=== PATIENT | female | born 1950 | race Caucasian/White ===

== ENCOUNTER 2018-07-03 10:41 | Inpatient (IN) ==
--- NOTE | 2018-07-03 11:13 | Emergency Department Note ---
ED Disposition Clinical Impression: COPD (chronic obstructive pulmonary disease), LLL pneumonia, RLL pneumonia, Systemic inflammatory response syndrome (SIRS) Disposition: Still a Patient Condition on Discharge: Fair Referrals: Richard Gallardo [Primary Care Provider] - - Critical Care Critical Care Time: No Attestation: On , the high probability of a clinically significant, sudden or life threatening deterioration of the following system(s) required my full and direct attention, intervention and personal management. The time I documented below is in addition to time spent performing reported procedures but includes the following listed in this critical care notation. Medical Decision Making - Medical Records Medical records reviewed: Yes: I reviewed the patient's medical records. - Ignacio Inquiry Pt receiving controlled substance: No Ignacio was queried for this patient: No Vital Signs: 07/03/18 10:52 07/03/18 12:11 07/03/18 12:22 Temperature 97.9 F Temperature Source Oral Pulse Rate 144 H Pulse Rate [Right Brachial] 121 H 141 H Respiratory Rate 24 35 H Blood Pressure [Right Arm] 107/76 L 133/67 Blood Pressure Mean [Right Arm] 86 89 Blood Pressure Source [Right Arm] Automatic Cuff Automatic Cuff Blood Pressure Position [Right Arm] Sitting Sitting 02 Sat by Pulse Oximetry 92 L 90 L Oxygen Delivery Method Nasal Cannula Nasal Cannula Nasal Cannula Oxygen Flow Rate (LPM) 2 4 4 - Lab Data Lab Results 07/03/18 11:01: WBC 30.9 H*, RBC 3.34 L, Hgb 10.2 L, Hct 31.4 L, MCV 94.0, MCH 30.6, MCHC 32.5, RDW 13.7, Plt Count 306, MPV 6.8 L, Neut % (Auto) 97.1 H, Lymph % (Auto) 1.2 L, [place] % (Auto) 1.2 L, Eos % (Auto) 0.2, Baso % (Auto) 0.3, Neut # (Auto) 30.0 H, Lymph # (Auto) 0.4 L, [place] # (Auto) 0.4, Eos # (Auto) 0.1, Baso # (Auto) 0.1, Total Counted 200, Neutrophils % (Manual) 68, Band Neutrophils % 29.5 H, Lymphocytes % (Manual) 2 L, Monocytes % (Manual) 1 L, Platelet Estimate Normal, Stomatocytes 3+ 07/03/18 11:01: Sodium 132 L, Potassium 4.7, Chloride 95 L, Carbon Dioxide 31, Anion Gap 10.7, BUN 35 H, Creatinine 1.11 H, Estimated Creat Clear 39, Estimated GFR 49 L, Est GFR ( Amer) 59, Glucose 99, Calcium 8.7, Total Bilirubin 0.6, AST 6 L, ALT 18, Alkaline Phosphatase 64, Total Creatine Kinase 16 L, CK-MB (CK-2) 0.5, CK-MB (CK-2) Rel Index 3.1, Troponin I 0.03, Total Protein 8.9 H, Albumin 2.6 L, Globulin 6.3 H, Albumin/Globulin Ratio 0.4 L 07/03/18 11:01: B-Natriuretic Peptide 103 H 07/03/18 11:01: TSH 0.15 L, Free T4 Index 3.3 L, Thyroxine (T4) 7.6, T3 Uptake 43 H 07/03/18 11:01: Lactate 1.9 07/03/18 11:14: Influenza Type A Ag Negative, Influenza Type B Ag Negative Result diagrams: 07/03/18 11:01 07/03/18 11:01 Orders (Tests/Meds): ED MEDICATIONS Generic Name Dose Route Start Last Admin Trade Name Freq PRN Reason Stop Dose Admin Sodium Chloride 1,000 mls @ 500 mls/hr 07/03/18 11:15 07/03/18 11:49 Sod Chlor 0.9% 1000ml Bag IV 07/03/18 13:14 500 mls/hr .Q2H CATERINA Administration Levofloxacin/Dextrose 750 mg in 150 mls @ 100 mls/hr 07/03/18 11:30 07/03/18 11:49 Levofloxacin 750mg/150ml Premix IV 07/17/18 11:29 100 mls/hr Q24H CATERINA Administration Protocol Sodium Chloride 3 ml 07/03/18 11:05 Sodium Chloride 3% 15ml Neb IH 08/02/18 11:04 ONCE PRN INDUCE SPUTUM COLLECTION Discontinued Medications Generic Name Dose Route Start Last Admin Trade Name Freq PRN Reason Stop Dose Admin Albuterol/Ipratropium 3 ml 07/03/18 11:15 07/03/18 12:11 Duoneb 3ml Neb IH 07/03/18 11:16 3 ml ONCE ONE Administration ORDERS Category Date Time Status XR chest 2V Stat Exams 07/03/18 11:05 Taken CBC w/Auto Diff [Complete Blood Count Auto Diff] Stat Lab 07/03/18 11:01 Results Peripheral Smear Review Stat Lab 07/03/18 11:01 Results Blood Culture Stat Micro 07/03/18 11:01 Received Sputum Culture & Gram Stain Stat Micro 07/03/18 11:55 Ordered - Radiology Data #1 Image(s): Chest Image Reviewed: Yes I reviewed the patient's radiology image Preliminary Findings: Abnormal Right lower lobe infiltrates and left basilar infiltrates. - ECG Data Tracing #1 Sinus tachycardia 120/minute, baseline artifact, right atrial enlargement, no acute finding ECG initial impression date: 07/03/18 ECG initial impression time: 10:50 Medical Decision Narrative: I discussed the abnormal chest x-ray and abnormal labs with the patient was agreeable for admission. [address] Lowe who covers Dr. Gallardo is patients who agreed to admit the patient and start her on Levaquin IV. Resp/SOB HPI - General Chief Complaint: Shortness of Breath/Dyspnea Stated Complaint: SOA Time Seen by Provider: 07/03/18 10:55 Mode of Arrival: Ambulatory Limitations: No Limitations Description of Symptoms (Recalled from ER Triage Doc. by RN): pt states she has left lung pain and increased soa; has a mass on that side - History of Present Illness 67 years old white female with history of lung mass, COPD, oxygen dependent 4 L nasal cannula hypertension and status post left hip replacement. Today the patient developed low grade fever, chills, productive sputum and exertional dyspnea. Today she was seen by her primary care physician who found her to be having a low-grade temp of 99 and low sinus tachycardia of 110/min so he sent her to the ED for evaluation. She denies having hemoptysis but she admits for having left-sided intermittent sharp pain worse with deep inspiration. Her left lung mass was not worked up. MD Complaint: shortness of breath, cough, pain with inspiration Onset (ago): day(s) (Started yesterday.) Severity: mild Consistency/Duration: intermittent Relieving factors: oxygen, rest, bronchodilators, upright position Exacerbating factors: lying flat, exertion, coughing, inspiration Known history of: COPD, other (Left lung mass. ) Associated symptoms: denies other symptoms Treatment prior to arrival: none - Related Data Home oxygen amount: none Home Medications Medication Instructions Recorded Confirmed amlodipine 10 mg tablet 10 mg PO DAILY tab 08/21/17 escitalopram 10 mg tablet 10 mg PO DAILY tab 08/21/17 hydrocodone 5 mg-acetaminophen 325 1 tab PO Q6H 08/21/17 mg tablet omeprazole 40 mg capsule,delayed 40 mg PO DAILY cap 08/21/17 release rosuvastatin 10 mg tablet 10 mg PO QHS tab 08/21/17 spironolactone 50 mg tablet 50 mg PO QAM 08/21/17 Allergies Allergy/AdvReac Type Severity Reaction Status Date / Time Penicillins [PENICILLINS] Allergy Intermediate I-HIVES Unverified 04/28/17 14:55 lisinopril Allergy Unknown Unverified 04/28/17 14:[address] [facility] History - Hepatitis A Screen Drug use history?: No High risk sexual behaviors?: No History of sexually transmitted infection?: No Currently employed?: No Childcare worker?: No Do you have indoor plumbing?: Yes Do you have electricity?: Yes Attestation statement:: This patient has been screened for Hepatitis A risk factors. I have reviewed the patient's past medical history: Yes Medical History: Reports:: Chronic Obstructive Pulmonary Disease (COPD), Home Oxygen, Hypertension Other Medical History: Reports: Anemia Other Surgeries: Yes: Hysterectomy-Partial, Tubal Ligation - Social History Educational Level: Completed High School Smoking Status: Former smoker Tobacco Type: cigarettes # Packs/Day (cigarettes): 1 Alcohol Intake: never Occupational Status: unemployed - Psychiatric History Expresses thoughts of harming self/others: None Suicide Plan Description: No Plan Family Hx:: Diabetes, Cancer ROS Obtained: Yes All systems reviewed & no additional complaints Physical Exam - General General appearance: alert, in no apparent distress - Head Head exam: atraumatic, normocephalic, normal inspection - Eye Eye exam: Present: normal appearance, PERRL, EOMI. Absent: scleral icterus, nystagmus - ENT ENT exam: Present: normal exam, normal oropharynx, mucous membranes moist, TM's normal bilaterally, normal external ear exam - Neck Neck exam: Present: normal inspection, full ROM, trachea midline. Absent: tenderness, meningismus, lymphadenopathy - Chest Chest inspection: Present: normal inspection, symmetric chest wall rise. Absent: tenderness - Respiratory Respiratory exam: Present: normal lung sounds bilaterally. Absent: respiratory distress, wheezes - Cardiovascular Cardiovascular exam: Present: regular rate, normal rhythm, tachycardia. Absent: JVD - Abdominal Exam Abdominal exam: Present: soft, normal bowel sounds. Absent: distention, tenderness, guarding, rebound, rigidity - Extremities Exam Extremities exam: Present: normal inspection, full ROM, normal capillary refill. Absent: calf tenderness - Back Exam Back exam: Present: normal inspection. Absent: tenderness, CVA tenderness (R), CVA tenderness (L) - Neurological Exam Neurological exam: Present: alert, oriented X3, CN II-XII intact, motor sensory deficit, reflexes normal - Psychiatric Psychiatric exam: Present: normal affect, normal mood - Skin Skin exam: Present: warm, dry, intact, normal color - Lymphatic Lymphatic Findings: no adenopathy
[2018-07-03 11:36] LABS: Basophils # 0.1 K/mm3 (0-0.2); Basophils % 0.3 % (0.1-2.0); Eosinophils # 0.1 K/mm3 (0.0-0.4); Eosinophils % 0.2 % (0.1-12.0); Hematocrit 31.4 % (37.0-47.0); Hemoglobin 10.2 g/dL (12.2-16.2); Lymphocytes # 0.4 K/mm3 (0.7-4.5); Lymphocytes % 1.2 % (10-50); Mean Corpuscular HGB Conc 32.5 g/dL (31.8-35.4); Mean Corpuscular Hemoglobin 30.6 pg (27.0-31.2); Mean Platelet Volume 6.8 fl (7.4-10.4); Monocytes # 0.4 K/mm3 (0.1-1.0); Monocytes % 1.2 % (1.7-9.3); Neutrophils % 97.1 % (37.0-80.0); Platelet Count 306 K/mm3 (142-424); Red Blood Count 3.34 M/mm3 (4.20-5.40); Red Cell Distribution Width 13.7 % (11.5-17.5); White Blood Count 30.9 K/mm3 (4.8-10.8)
[2018-07-03 11:50] LABS: Free Thyroxine Index 3.3 ug/dL (5.93-13.13); Thyroid Stimulating Hormone 0.15 uIU/ml (0.358-3.740)
[2018-07-03 11:53] LABS: Band Neutrophils % 29.5 (0-8); Lymphocytes % 2 % (10-50); Monocytes % 1 % (2-9); Neutrophils % 68 % (42-76); Total Cells Counted 200
[2018-07-03 11:54] LABS: Stomatocytes 3+
[2018-07-03 12:11] LABS: Albumin Level 2.6 gm/dL (3.4-5.0); Albumin/Globulin Ratio 0.4 (1.1-1.8); Anion Gap 10.7 mEq/L (5-15); Bilirubin,Total 0.6 mg/dL (0.2-1.0); Calcium 8.7 mg/dL (8.5-10.1); Globulin 6.3 gm/dl (1.3-3.2); Potassium 4.7 mmoL/L (3.5-5.1); Total Protein,Serum 8.9 gm/dL (6.4-8.2)
--- NOTE | 2018-07-03 14:14 | Pharmacy Consult Notes ---
[facility] Pharmacy VTE Monitoring - Patient Demographics Admission date: 07/03/18 Report Date: 07/03/18 Time: 14:14 Allergies/Adverse Reactions: Patient Allergies Penicillins [PENICILLINS] Allergy (Intermediate, Verified 07/03/18 14:04) I-HIVES lisinopril Allergy (Unknown, Verified 07/03/18 14:04) Height: 1.57 m Weight: 52.163 kg Patient Problems: Current Active Problems COPD (chronic obstructive pulmonary disease) (Acute) LLL pneumonia (Acute) RLL pneumonia (Acute) Systemic inflammatory response syndrome (SIRS) (Acute) - VTE Risk Labs: VTE Related Lab Results Hgb 10.2 g/dL (12.2-16.2) L 07/03/18 11:01 Hct 31.4 % (37.0-47.0) L 07/03/18 11:01 Plt Count 306 K/mm3 (142-424) 07/03/18 11:01 BUN 35 mg/dL (7-18) H 07/03/18 11:01 Creatinine 1.11 mg/dL (0.55-1.02) H 07/03/18 11:01 Estimated Creat Clear 39 mL/min (50-200) 07/03/18 11:01 - Prophylaxis VTE Prophylaxis Ordered?: Yes Types of VTE Prophylaxis: TEDS Knee High Location of Applied Device: Bilateral Lower Extremeties - VTE Diagnosis Confirmed Treatment or plan recommended: Continue Current Treatment
[2018-07-03 15:37] LABS: ABG HCO3 29.7 mmhg (22.0-26.0); ABG Oxygen Saturation 95 % (90-100); ABG PCO2 47.9 mmhg (35.0-45.0); ABG PH 7.41 mmol/L (7.35-7.45); ABG PO2 78.6 mmhg (80-100); ABG TCO2 31.2 mmhg (23-27)
[2018-07-03 15:39] LABS: Allen's Test Acceptable
--- NOTE | 2018-07-03 17:17 | History & Physical Report ---
*Admission Date: 07/03/18 *Chief complaint: Shortness of air and cough *History of present illness: 67-year-old white female with oxygen and prednisone requiring COPD, who has had a significant run of illness over the past couple of years. She presented to the emergency department this morning from her primary care physician's office after she had had a 1 day history of cough and shortness of air along with some sputum production. She has been feeling poorly for about 3 or 4 days with decreased p.o. intake. She became worse today, in the office was noted to have tachypnea and low oxygen saturations and was sent to the emergency department. ER workup revealed significant leukocytosis, hypoxia over her baseline, infiltrate on chest x-ray and she is admitted to the hospital for IV antibiotics and steroid therapy. [facility] History I have reviewed the patient's past medical history: Yes Medical History: Reports:: Chronic Obstructive Pulmonary Disease (COPD), Home Oxygen, Hyperlipidemia, Hypertension Denies:: Cancer, Diabetes Mellitus Type 1, Diabetes Mellitus Type 2, MRSA *Have you ever received a pneumonia vaccine?: Yes *Have you received a flu vaccine this season?: Yes Other Medical History: Reports: Anemia, Arthritis, Hormone Therapy (estrogen), Sinus Problems Comment:: Admitted to [facility] in September 2017, ventilated for several days and then underwent skilled rehabilitation in [place] for several weeks. Admitted to [facility] in 2016 for lung biopsy of suspicious nodule, apparently complications included significant hemo-thorax and she spent several days in the hospital with bloody evacuations but no biopsy was ever done. She has lost follow-up with oncology. Laterality Cases: Left: Arthroscopy Hip Other Surgeries: Yes: Cardiac Catheterization, Colonoscopy, EGD, Hysterectomy- Partial, Tubal Ligation Amputation: No Fractures: Yes (right wrist) - *Social History Educational Level: Completed High School Smoking Status: Former smoker Tobacco Type: cigarettes # Packs/Day (cigarettes): 1 Alcohol Intake: never *Occupational Status:: unemployed Housing: house Household Members: children, other *Travel in the last 8 weeks: None Comment: Lives at home with a daughter who has Vasquez syndrome and is intellectually disabled, a granddaughter and has excellent contact with another daughter and 2 sons. She is but she lives apart from her in separate houses-he has significant PTSD history and does better "if he lives by himself." - Psychiatric History Expresses thoughts of harming self/others: None Suicide Plan Description: No Plan Family Hx:: Cancer, Hyperlipidemia, Hypertension Review of Systems - Review of Systems Review of systems:: pertinent systems reviewed and negative unless documented below - Constitutional Reports anorexia, Reports body ache(s), Reports chills, Reports fever(s) - Eyes Denies blind spots, Denies blurry vision, Denies change in vision - ENT Reports dry mouth, Denies abnormal hearing, Denies bleeding gums - *Cardiovascular Reports shortness of breath, Reports shortness of breath with activity, Reports shortness of breath when lying down, Reports rapid, pounding, or irregular heartbeat, Denies chest pain, Denies chest pain at rest, Denies leg swelling - *Respiratory Reports change in phlegm color, Reports chest congestion, Reports cough, Reports shortness of breath - *Gastrointestinal Denies abdominal pain, Denies belching, Denies coffee ground vomit, Denies constipation - *Musculoskeletal Denies abnormal walking - Integumentary/Breasts Denies acne, Denies hair loss, Denies bleeding lesions - *Neurologic Denies abnormal walking - Psychiatric Denies abnormal sleep pattern - Endocrine Denies cold intolerance - Hematologic/Lymphatic Denies easy bleeding, Denies easy bruising, Denies enlarged lymph nodes Meds Home Medications Medication Instructions Recorded Confirmed Type amlodipine 10 mg tablet 10 mg PO DAILY tab 08/21/17 07/03/18 History escitalopram 10 mg tablet 10 mg PO DAILY tab 08/21/17 07/03/18 History hydrocodone 5 mg-acetaminophen 325 1 tab PO Q6H 08/21/17 07/03/18 History mg tablet omeprazole 40 mg capsule,delayed 40 mg PO DAILY cap 08/21/17 07/03/18 History release spironolactone 50 mg tablet 50 mg PO DAILY 08/21/17 07/03/18 History Rosuvastatin Calcium 10 mg PO HS 07/03/18 07/03/18 History Allergies Allergy/AdvReac Type Severity Reaction Status Date / Time Penicillins [PENICILLINS] Allergy Intermediate I-HIVES Verified 07/03/18 14:04 lisinopril Allergy Unknown Verified 07/03/18 14:04 Exam Vital signs and Labs for Last 24 Hours: Temp Pulse Resp BP Pulse Ox 100.7 F H 146 H 38 H 115/67 86 L 07/03/18 15:55 07/03/18 15:55 07/03/18 15:55 07/03/18 15:55 07/03/18 15:55 Laboratory Results - last 24 hr 07/03/18 11:01: WBC 30.9 H*, RBC 3.34 L, Hgb 10.2 L, Hct 31.4 L, MCV 94.0, MCH 30.6, MCHC 32.5, RDW 13.7, Plt Count 306, MPV 6.8 L, Neut % (Auto) 97.1 H, Lymph % (Auto) 1.2 L, [place] % (Auto) 1.2 L, Eos % (Auto) 0.2, Baso % (Auto) 0.3, Neut # (Auto) 30.0 H, Lymph # (Auto) 0.4 L, [place] # (Auto) 0.4, Eos # (Auto) 0.1, Baso # (Auto) 0.1, Total Counted 200, Neutrophils % (Manual) 68, Band Neutrophils % 29.5 H, Lymphocytes % (Manual) 2 L, Monocytes % (Manual) 1 L, Platelet Estimate Normal, Stomatocytes 3+ 07/03/18 11:01: Sodium 132 L, Potassium 4.7, Chloride 95 L, Carbon Dioxide 31, Anion Gap 10.7, BUN 35 H, Creatinine 1.11 H, Estimated Creat Clear 39, Estimated GFR 49 L, Est GFR ( Amer) 59, Glucose 99, Calcium 8.7, Total Bilirubin 0.6, AST 6 L, ALT 18, Alkaline Phosphatase 64, Total Creatine Kinase 16 L, CK-MB (CK-2) 0.5, CK-MB (CK-2) Rel Index 3.1, Troponin I 0.03, Total Protein 8.9 H, Albumin 2.6 L, Globulin 6.3 H, Albumin/Globulin Ratio 0.4 L 07/03/18 11:01: B-Natriuretic Peptide 103 H 07/03/18 11:01: TSH 0.15 L, Free T4 Index 3.3 L, Thyroxine (T4) 7.6, T3 Uptake 43 H 07/03/18 11:01: Lactate 1.9 07/03/18 11:14: Influenza Type A Ag Negative, Influenza Type B Ag Negative 02/23/19 15:05: Specimen Source Right radial, O2 % 50% venti, ABG pH 7.41, ABG pCO2 47.9 H, ABG pO2 78.6 L, ABG HCO3 29.7 H, ABG Total CO2 31.2 H, ABG O2 Saturation 95, ABG Base Excess 5.0 H, Chet Test Acceptable I & O for Last 24 hours: Intake & Output 07/01/18 07/02/18 07/03/18 07/04/18 11:59 11:59 11:59 11:59 Weight 115 lb 115 lb Microbiology Reports for the Last 24 Hours: Microbiology 07/03/18 11:55 Sputum - Expectorated Sputum Gram Stain - Final Narrative: Patient is awake, on a facemask oxygen delivery system. Appears older than her stated age. Is pleasant, alert, oriented x3. Very knowledgeable about her past medical history. Oropharynx is dry but clear, she has no JVD. She has no supraclavicular lymphadenitis. Lungs have crackles throughout her lung benavides, diminished air movement in the left lower lung field. Significant use of accessory muscles. Heart rate tachycardic but regular. Ausculatory exam compromised by her significant abnormal lung exam. Abdomen soft, nontender. Normal bowel sounds. Perfusion is slightly diminished at 3 seconds capillary refill but her extremities are warm. No pulse deficits. She is weak but has symmetric cranial nerves and moves all extremities well. Assessment and Plan (1) Pleural effusion Current visit: Yes Status: Acute Category: Medical Code(s): J90 - Pleural effusion, not elsewhere classified Possible left over scarring/effusion from episode of admission at with hemothorax. If creatinine has improved tomorrow would consider CT scan with contrast to delineate this structure and possible infiltrate. (2) COPD (chronic obstructive pulmonary disease) Current visit: Yes Status: Acute Category: Medical Code(s): J44.9 - Chronic obstructive pulmonary disease, unspecified End-stage disease. Continue supportive care Xopenex given her reactive tachycardia and steroids. (3) LLL pneumonia Current visit: Yes Status: Acute Category: Medical Code(s): J18.1 - Lobar pneumonia, unspecified organism Has not had antibiotics recently. We will start single agent Levaquin therapy, await culture results from blood and sputum.
[2018-07-04 06:50] LABS: Basophils # 0.1 K/mm3 (0-0.2); Basophils % 0.2 % (0.1-2.0); Eosinophils # 0.1 K/mm3 (0.0-0.4); Eosinophils % 0.3 % (0.1-12.0); Hemoglobin 9.4 g/dL (12.2-16.2); Lymphocytes # 0.4 K/mm3 (0.7-4.5); Lymphocytes % 1.2 % (10-50); Mean Corpuscular HGB Conc 31.9 g/dL (31.8-35.4); Mean Corpuscular Hemoglobin 30.2 pg (27.0-31.2); Mean Corpuscular Volume 94.9 fl (81-99); Mean Platelet Volume 6.9 fl (7.4-10.4); Monocytes # 0.3 K/mm3 (0.1-1.0); Monocytes % 0.9 % (1.7-9.3); Neutrophils # 27.2 K/mm3 (1.8-7.8); Neutrophils % 97.3 % (37.0-80.0); Platelet Count 222 K/mm3 (142-424); Red Blood Count 3.11 M/mm3 (4.20-5.40); Red Cell Distribution Width 13.6 % (11.5-17.5)
[2018-07-04 06:52] LABS: Anion Gap 11.5 mEq/L (5-15); Calcium 8.4 mg/dL (8.5-10.1); Potassium 4.5 mmoL/L (3.5-5.1)
[2018-07-04 06:54] LABS: Hematocrit 29.5 % (37.0-47.0)
[2018-07-04 07:07] LABS: Hypochromasia 1+; Lymphocytes % 2 % (10-50); Neutrophils % 82 % (42-76); Rouleaux 1+; Total Cells Counted 100
--- NOTE | 2018-07-04 08:02 | Progress Note ---
Internal Medicine - PN: Subj *Date: 07/04/18 *Time: 08:00 Interval history: Patient is nicely improved this morning. Sitting up in a chair, tolerating nasal cannula oxygen well with acceptable pulse oximetry readings in the low to 90% range. She is alert, oriented and pleasant ate a good breakfast. Exam Vital signs and Labs for Last 24 Hours: Temp Pulse Resp BP Pulse Ox 97.9 F 107 H 20 118/59 L 91 L 07/04/18 07:36 07/04/18 07:36 07/04/18 07:36 07/04/18 07:36 07/04/18 07:36 Laboratory Results - last 24 hr 07/03/18 11:01: WBC 30.9 H*, RBC 3.34 L, Hgb 10.2 L, Hct 31.4 L, MCV 94.0, MCH 30.6, MCHC 32.5, RDW 13.7, Plt Count 306, MPV 6.8 L, Neut % (Auto) 97.1 H, Lymph % (Auto) 1.2 L, [place] % (Auto) 1.2 L, Eos % (Auto) 0.2, Baso % (Auto) 0.3, Neut # (Auto) 30.0 H, Lymph # (Auto) 0.4 L, Isabella # (Auto) 0.4, Eos # (Auto) 0.1, Baso # (Auto) 0.1, Total Counted 200, Neutrophils % (Manual) 68, Band Neutrophils % 29.5 H, Lymphocytes % (Manual) 2 L, Monocytes % (Manual) 1 L, Platelet Estimate Normal, Stomatocytes 3+ 07/03/18 11:01: Sodium 132 L, Potassium 4.7, Chloride 95 L, Carbon Dioxide 31, Anion Gap 10.7, BUN 35 H, Creatinine 1.11 H, Estimated Creat Clear 39, Estimated GFR 49 L, Est GFR ( Amer) 59, Glucose 99, Calcium 8.7, Total Bilirubin 0.6, AST 6 L, ALT 18, Alkaline Phosphatase 64, Total Creatine Kinase 16 L, CK-MB (CK-2) 0.5, CK-MB (CK-2) Rel Index 3.1, Troponin I 0.03, Total Protein 8.9 H, Albumin 2.6 L, Globulin 6.3 H, Albumin/Globulin Ratio 0.4 L 07/03/18 11:01: B-Natriuretic Peptide 103 H 07/03/18 11:01: TSH 0.15 L, Free T4 Index 3.3 L, Thyroxine (T4) 7.6, T3 Uptake 43 H 07/03/18 11:01: Lactate 1.9 07/03/18 11:14: Influenza Type A Ag Negative, Influenza Type B Ag Negative 07/03/18 15:05: Specimen Source Right radial, O2 % 50% venti, ABG pH 7.41, ABG pCO2 47.9 H, ABG pO2 78.6 L, ABG HCO3 29.7 H, ABG Total CO2 31.2 H, ABG O2 Saturation 95, ABG Base Excess 5.0 H, Chet Test Acceptable 07/04/18 06:40: WBC 28.0 H*, RBC 3.11 L, Hgb 9.4 L, Hct 29.5 L, MCV 94.9, MCH 30.2, MCHC 31.9, RDW 13.6, Plt Count 222 D, MPV 6.9 L, Neut % (Auto) 97.3 H, Lymph % (Auto) 1.2 L, [place] % (Auto) 0.9 L, Eos % (Auto) 0.3, Baso % (Auto) 0.2, Neut # (Auto) 27.2 H, Lymph # (Auto) 0.4 L, [place] # (Auto) 0.3, Eos # (Auto) 0.1, Baso # (Auto) 0.1, Total Counted 100, Neutrophils % (Manual) 82 H, Band Neutrophils % 16.0 H, Lymphocytes % (Manual) 2 L, Platelet Estimate Normal, Hypochromasia 1+, Rouleaux 1+ 07/04/18 06:40: Sodium 135 L, Potassium 4.5, Chloride 99, Carbon Dioxide 29, Anion Gap 11.5, BUN 32 H, Creatinine 0.90, Estimated Creat Clear 44, Estimated GFR 62, Est GFR ( Amer) 75 D, Glucose 149 H D, Calcium 8.4 L I & O for Last 24 hours: Intake & Output 07/01/18 07/02/18 07/03/18 07/04/18 11:59 11:59 11:59 11:59 Intake Total 1521 152 Balance 1522 / 1522 Weight 115 lb 115 lb Microbiology Reports for the Last 24 Hours: Microbiology 07/03/18 11:01 Blood Blood Culture - Preliminary Gram Positive Cocci 07/03/18 11:01 Blood Blood Culture - Preliminary Gram Positive Cocci 07/03/18 11:55 Sputum - Expectorated Sputum Gram Stain - Final 07/03/18 11:55 Sputum - Expectorated Sputum Sputum Culture - Preliminary Narrative: Oropharynx clear, no JVD. Lungs have better air entry with less crackles, still with reduced air movement in both bases, especially on the left. Heart rate regular. Perfusion is improved. Does are equal in all 4 extremities. Abdomen soft and nontender. Neurologic exam nonfocal. Assessment and Plan (1) Pleural effusion Current visit: Yes Status: Acute Category: Medical Code(s): J90 - Pleural effusion, not elsewhere classified History of lung mass with failed biopsy get CT scan today. Creatinine has improved. (2) COPD (chronic obstructive pulmonary disease) Current visit: Yes Status: Acute Category: Medical Code(s): J44.9 - Chronic obstructive pulmonary disease, unspecified Severe disease. Slowly improving (3) LLL pneumonia Current visit: Yes Status: Acute Category: Medical Code(s): J18.1 - Lobar pneumonia, unspecified organism Given blood cultures probably from Streptococcus. Continue IV antibiotics (4) Bacteremia Current visit: Yes Status: Acute Category: Medical Code(s): R78.81 - Bacteremia Streptococcus and blood culture bottles are continue antibiotics and await final results -- discussed with patient probably need 2 weeks of IV antibiotics (5) Acute kidney injury Current visit: Yes Status: Acute Category: Medical Code(s): N17.9 - Acute kidney failure, unspecified Improved with IV fluids. Continue these IV fluids through the CAT scan. And watch tomorrow
[2018-07-05 06:30] LABS: Basophils % 0.1 % (0.1-2.0); Hematocrit 28.3 % (37.0-47.0); Hemoglobin 8.9 g/dL (12.2-16.2); Lymphocytes # 0.4 K/mm3 (0.7-4.5); Lymphocytes % 1.5 % (10-50); Mean Corpuscular HGB Conc 31.6 g/dL (31.8-35.4); Mean Corpuscular Hemoglobin 30.7 pg (27.0-31.2); Mean Corpuscular Volume 97.1 fl (81-99); Mean Platelet Volume 7.5 fl (7.4-10.4); Monocytes # 0.5 K/mm3 (0.1-1.0); Monocytes % 1.8 % (1.7-9.3); Neutrophils # 24.1 K/mm3 (1.8-7.8); Neutrophils % 96.5 % (37.0-80.0); Platelet Count 230 K/mm3 (142-424); Red Blood Count 2.91 M/mm3 (4.20-5.40); Red Cell Distribution Width 13.7 % (11.5-17.5)
[2018-07-05 06:57] LABS: Albumin Level 1.8 gm/dL (3.4-5.0); Albumin/Globulin Ratio 0.3 (1.1-1.8); Anion Gap 6.6 mEq/L (5-15); Bilirubin,Total 0.2 mg/dL (0.2-1.0); Calcium 9.2 mg/dL (8.5-10.1); Globulin 6.1 gm/dl (1.3-3.2); Potassium 4.6 mmoL/L (3.5-5.1); Total Protein,Serum 7.9 gm/dL (6.4-8.2)
[2018-07-05 07:38] LABS: Lymphocytes % 2 % (10-50); Neutrophils % 98 % (42-76); RBC Morphology Normal; Total Cells Counted 100
--- NOTE | 2018-07-05 08:08 | Progress Note ---
Internal Medicine - PN: Subj *Date: 07/05/18 *Time: 08:05 Interval history: Patient is awake, alert and pleasant. Feels much better. Tolerating nasal cannula oxygen well. Exam Vital signs and Labs for Last 24 Hours: Temp Pulse Resp BP Pulse Ox 97.9 F 99 H 20 108/58 L 92 L 07/05/18 07:40 07/05/18 07:40 07/05/18 07:40 07/05/18 07:40 07/05/18 07:40 Laboratory Results - last 24 hr 07/05/18 06:20: WBC 25.0 H*, RBC 2.91 L, Hgb 8.9 L, Hct 28.3 L, MCV 97.1, MCH 30.7, MCHC 31.6 L, RDW 13.7, Plt Count 230, MPV 7.5, Neut % (Auto) 96.5 H, Lymph % (Auto) 1.5 L, [place] % (Auto) 1.8, Eos % (Auto) 0.0 L, Baso % (Auto) 0.1, Neut # (Auto) 24.1 H, Lymph # (Auto) 0.4 L, [place] # (Auto) 0.5, Eos # (Auto) 0.0, Baso # (Auto) 0.0, Total Counted 100, Neutrophils % (Manual) 98 H, Lymphocytes % (Manual) 2 L, Platelet Estimate Normal, RBC Morphology Normal 07/05/18 06:20: Sodium 136, Potassium 4.6, Chloride 100, Carbon Dioxide 34 H, Anion Gap 6.6, BUN 36 H, Creatinine 0.89, Estimated Creat Clear 44, Estimated GFR 63, Est GFR ( Amer) 76, Glucose 150 H, Calcium 9.2, Total Bilirubin 0.2, AST 96 H D, ALT 142 H D, Alkaline Phosphatase 73, Total Protein 7.9, Albumin 1.8 L, Globulin 6.1 H, Albumin/Globulin Ratio 0.3 L I & O for Last 24 hours: Intake & Output 07/02/18 07/03/18 07/04/18 07/05/18 11:59 11:59 11:59 11:59 Intake Total 2001 2167 / 2167 Balance 20017 / 216 Weight 115 lb 115 lb Microbiology Reports for the Last 24 Hours: Microbiology 07/03/18 11:55 Sputum - Expectorated Sputum Gram Stain - Final 07/03/18 11:55 Sputum - Expectorated Sputum Sputum Culture - Final Normal Respiratory Apurva 07/03/18 11:01 Blood Blood Culture - Final Streptococcus pneumoniae 07/03/18 11:01 Blood Blood Culture - Final Streptococcus pneumoniae Narrative: Patient is pleasant and alert. These have rhonchi but better air entry. Heart rate regular. Abdomen soft and nontender. No perfusion deficit Assessment and Plan (1) Pleural effusion Current visit: Yes Status: Acute Category: Medical Code(s): J90 - Pleural effusion, not elsewhere classified CT scan reviewed showing moderate size pleural effusion. Surgical consultation to see if drainage for cytology would be possible. CT scan also shows an lung pulmonary nodular and (2) COPD (chronic obstructive pulmonary disease) Current visit: Yes Status: Acute Category: Medical Code(s): J44.9 - Chronic obstructive pulmonary disease, unspecified (3) LLL pneumonia Current visit: Yes Status: Acute Category: Medical Code(s): J18.1 - Lobar pneumonia, unspecified organism (4) Bacteremia Current visit: Yes Status: Acute Category: Medical Code(s): R78.81 - Bacteremia (5) Acute kidney injury Current visit: Yes Status: Resolved Category: Medical Code(s): N17.9 - Acute kidney failure, unspecified (6) Sepsis due to Streptococcus pneumoniae Current visit: Yes Status: Acute Category: Medical Code(s): A40.3 - Sepsis due to Streptococcus pneumoniae Organism sensitive to all antibiotics tested. Plan to place PICC line today for 10 more days of antibiotics and patient will need swing bed (7) Hyponatremia Current visit: Yes Status: Resolved Category: Medical Code(s): E87.1 - Hypo-osmolality and hyponatremia Resolved with appropriate hydration (8) Pulmonary nodule Current visit: Yes Status: Acute Category: Medical Code(s): R91.1 - Solitary pulmonary nodule Patient has a history of biopsy attempt at [facility] in 2017 that resulted in hemothorax and an unsuccessful biopsy. I do not have these records Nodule appears to be enlarging on our CT scan yesterday. Pulmonary eval.
--- NOTE | 2018-07-05 08:44 | Consult Report ---
*Admission Date: 07/03/18 *Chief complaint: Left pleural effusion *History of present illness: Patient is a very pleasant 67-year-old white female with history of home oxygen dependent COPD. She does have a previous history of a left lung nodule which reportedly had an attempt at an unsuccessful biopsy at [facility] in April 2017 resulting in hemothorax. She admitted a couple days ago with increasing shortness of air and productive cough. She was diagnosed with pneumonia. Initial chest x-ray revealed evidence of left effusion. She underwent CT scan of the chest yesterday. Surgical consultation was obtained today for possible diagnostic thoracentesis due to history of this lung nodule. Review of Systems - Review of Systems Review of systems:: pertinent systems reviewed and negative unless documented below - Constitutional Reports chills - Eyes Denies change in vision - ENT Denies abnormal hearing - *Cardiovascular Denies chest pain - *Respiratory Reports change in phlegm color, Reports chest congestion, Reports cough, Reports shortness of breath - *Gastrointestinal Denies abdominal pain - *Neurologic Denies abnormal walking, Denies abnormal hearing [facility] History Medical History: Reports:: Chronic Obstructive Pulmonary Disease (COPD), Home Oxygen, Hyperlipidemia, Hypertension Denies:: Cancer, Diabetes Mellitus Type 1, Diabetes Mellitus Type 2, MRSA *Have you ever received a pneumonia vaccine?: Yes *Have you received a flu vaccine this season?: Yes Other Medical History: Reports: Anemia, Arthritis, Hormone Therapy (estrogen), Sinus Problems Laterality Cases: Left: Arthroscopy Hip Other Surgeries: Yes: Cardiac Catheterization, Colonoscopy, EGD, Hysterectomy- Partial, Tubal Ligation Amputation: No Fractures: Yes (right wrist) - *Social History Educational Level: Completed High School Smoking Status: Former smoker Tobacco Type: cigarettes # Packs/Day (cigarettes): 1 Alcohol Intake: never *Occupational Status:: unemployed Housing: house Household Members: children, other *Travel in the last 8 weeks: None - Psychiatric History Expresses thoughts of harming self/others: None Suicide Plan Description: No Plan Family Hx:: Cancer, Hyperlipidemia, Hypertension Meds Home Medications Medication Instructions Recorded Confirmed Type amlodipine 10 mg tablet 10 mg PO DAILY tab 08/21/17 07/03/18 History escitalopram 10 mg tablet 10 mg PO DAILY tab 08/21/17 07/03/18 History hydrocodone 5 mg-acetaminophen 325 1 tab PO Q6H 08/21/17 07/03/18 History mg tablet omeprazole 40 mg capsule,delayed 40 mg PO DAILY cap 08/21/17 07/03/18 History release spironolactone 50 mg tablet 50 mg PO DAILY 08/21/17 07/03/18 History Rosuvastatin Calcium 10 mg PO HS 07/03/18 07/03/18 History Allergies Allergy/AdvReac Type Severity Reaction Status Date / Time Penicillins [PENICILLINS] Allergy Intermediate I-HIVES Verified 07/03/18 14:04 lisinopril Allergy Unknown Verified 07/03/18 14:04 Exam Vital signs and Labs for Last 24 Hours: Temp Pulse Resp BP Pulse Ox 97.9 F 99 H 20 108/58 L 92 L 07/05/18 07:40 07/05/18 07:40 07/05/18 07:40 07/05/18 07:40 07/05/18 07:40 Laboratory Results - last 24 hr 07/05/18 06:20: WBC 25.0 H*, RBC 2.91 L, Hgb 8.9 L, Hct 28.3 L, MCV 97.1, MCH 30.7, MCHC 31.6 L, RDW 13.7, Plt Count 230, MPV 7.5, Neut % (Auto) 96.5 H, Lymph % (Auto) 1.5 L, [place] % (Auto) 1.8, Eos % (Auto) 0.0 L, Baso % (Auto) 0.1, Neut # (Auto) 24.1 H, Lymph # (Auto) 0.4 L, [place] # (Auto) 0.5, Eos # (Auto) 0.0, Baso # (Auto) 0.0, Total Counted 100, Neutrophils % (Manual) 98 H, Lymphocytes % (Manual) 2 L, Platelet Estimate Normal, RBC Morphology Normal 07/05/18 06:20: Sodium 136, Potassium 4.6, Chloride 100, Carbon Dioxide 34 H, Anion Gap 6.6, BUN 36 H, Creatinine 0.89, Estimated Creat Clear 44, Estimated GFR 63, Est GFR ( Amer) 76, Glucose 150 H, Calcium 9.2, Total Bilirubin 0.2, AST 96 H D, ALT 142 H D, Alkaline Phosphatase 73, Total Protein 7.9, Albumin 1.8 L, Globulin 6.1 H, Albumin/Globulin Ratio 0.3 L I & O for Last 24 hours: Intake & Output 07/02/18 07/03/18 07/04/18 07/05/18 11:59 11:59 11:59 11:59 Intake Total 2001 2167 / 216 Balance 2001 / 216 Weight 115 lb 115 lb Microbiology Reports for the Last 24 Hours: Microbiology 07/03/18 11:55 Sputum - Expectorated Sputum Gram Stain - Final 07/03/18 11:55 Sputum - Expectorated Sputum Sputum Culture - Final Normal Respiratory Apurva 07/03/18 11:01 Blood Blood Culture - Final Streptococcus pneumoniae 07/03/18 11:01 Blood Blood Culture - Final Streptococcus pneumoniae - *Routine Respiratory Exam Comments: Rhonchi with diminished breath sounds particularly in the left lower hemithorax. Results - Labs 07/05/18 06:20 07/05/18 06:20 Laboratory Results - last 24 hr 07/05/18 06:20: WBC 25.0 H*, RBC 2.91 L, Hgb 8.9 L, Hct 28.3 L, MCV 97.1, MCH 30.7, MCHC 31.6 L, RDW 13.7, Plt Count 230, MPV 7.5, Neut % (Auto) 96.5 H, Lymph % (Auto) 1.5 L, [place] % (Auto) 1.8, Eos % (Auto) 0.0 L, Baso % (Auto) 0.1, Neut # (Auto) 24.1 H, Lymph # (Auto) 0.4 L, [place] # (Auto) 0.5, Eos # (Auto) 0.0, Baso # (Auto) 0.0, Total Counted 100, Neutrophils % (Manual) 98 H, Lymphocytes % (Manual) 2 L, Platelet Estimate Normal, RBC Morphology Normal 07/05/18 06:20: Sodium 136, Potassium 4.6, Chloride 100, Carbon Dioxide 34 H, Anion Gap 6.6, BUN 36 H, Creatinine 0.89, Estimated Creat Clear 44, Estimated GFR 63, Est GFR ( Amer) 76, Glucose 150 H, Calcium 9.2, Total Bilirubin 0.2, AST 96 H D, ALT 142 H D, Alkaline Phosphatase 73, Total Protein 7.9, Albumin 1.8 L, Globulin 6.1 H, Albumin/Globulin Ratio 0.3 L Assessment and Plan (1) Pleural effusion Current visit: Yes Status: Acute Category: Medical Code(s): J90 - Pleural effusion, not elsewhere classified (2) COPD (chronic obstructive pulmonary disease) Current visit: Yes Status: Acute Category: Medical Code(s): J44.9 - Chronic obstructive pulmonary disease, unspecified (3) LLL pneumonia Current visit: Yes Status: Acute Category: Medical Code(s): J18.1 - Lobar pneumonia, unspecified organism (4) Bacteremia Current visit: Yes Status: Acute Category: Medical Code(s): R78.81 - Bacteremia (5) Acute kidney injury Current visit: Yes Status: Resolved Category: Medical Code(s): N17.9 - Acute kidney failure, unspecified (6) Sepsis due to Streptococcus pneumoniae Current visit: Yes Status: Acute Category: Medical Code(s): A40.3 - Sepsis due to Streptococcus pneumoniae (7) Hyponatremia Current visit: Yes Status: Resolved Category: Medical Code(s): E87.1 - Hypo-osmolality and hyponatremia (8) Pulmonary nodule Current visit: Yes Status: Acute Category: Medical Code(s): R91.1 - Solitary pulmonary nodule - Assessment and plan all Dx Assessment and Plan for all problems:: I reviewed her chest CT. Much of the opacity noted on chest x-ray appears to be consolidation. There appears to be only a scant amount of pleural fluid. This likely would not be able to be safely aspirated by bedside thoracentesis. I will discuss with radiology potential for ultrasound to better ascertain the degree of fluid and for possible radiographic guided thoracentesis. However, there appears to be only a trace amount of fluid on the CT scan done this weekend.
--- NOTE | 2018-07-05 16:01 | Progress Note ---
Subjective Patient reports: no new complaints Exam Vital signs and Labs for Last 24 Hours: Temp Pulse Resp BP Pulse Ox 97.7 F 106 H 20 131/65 91 L 07/05/18 15:49 07/05/18 15:49 07/05/18 15:49 07/05/18 15:49 07/05/18 15:49 Laboratory Results - last 24 hr 07/05/18 06:20: WBC 25.0 H*, RBC 2.91 L, Hgb 8.9 L, Hct 28.3 L, MCV 97.1, MCH 30.7, MCHC 31.6 L, RDW 13.7, Plt Count 230, MPV 7.5, Neut % (Auto) 96.5 H, Lymph % (Auto) 1.5 L, [place] % (Auto) 1.8, Eos % (Auto) 0.0 L, Baso % (Auto) 0.1, Neut # (Auto) 24.1 H, Lymph # (Auto) 0.4 L, [place] # (Auto) 0.5, Eos # (Auto) 0.0, Baso # (Auto) 0.0, Total Counted 100, Neutrophils % (Manual) 98 H, Lymphocytes % (Manual) 2 L, Platelet Estimate Normal, RBC Morphology Normal 07/05/18 06:20: Sodium 136, Potassium 4.6, Chloride 100, Carbon Dioxide 34 H, Anion Gap 6.6, BUN 36 H, Creatinine 0.89, Estimated Creat Clear 44, Estimated GFR 63, Est GFR ( Amer) 76, Glucose 150 H, Calcium 9.2, Total Bilirubin 0.2, AST 96 H D, ALT 142 H D, Alkaline Phosphatase 73, Total Protein 7.9, Albumin 1.8 L, Globulin 6.1 H, Albumin/Globulin Ratio 0.3 L I & O for Last 24 hours: Intake & Output 07/03/18 07/04/18 07/05/18 07/06/18 11:59 11:59 11:59 11:59 Intake Total 2001 Balance 2001 Weight 115 lb 115 lb 114 lb 15.996 oz Microbiology Reports for the Last 24 Hours: Microbiology 07/03/18 11:55 Sputum - Expectorated Sputum Gram Stain - Final 07/03/18 11:55 Sputum - Expectorated Sputum Sputum Culture - Final Normal Respiratory Apurva 07/03/18 11:01 Blood Blood Culture - Final Streptococcus pneumoniae 07/03/18 11:01 Blood Blood Culture - Final Streptococcus pneumoniae - Constitutional no acute distress Progress Note: A&P (1) Pleural effusion Status: Acute Current Visit: Yes (2) COPD (chronic obstructive pulmonary disease) Status: Acute Current Visit: Yes (3) LLL pneumonia Status: Acute Current Visit: Yes (4) Bacteremia Status: Acute Current Visit: Yes (5) Acute kidney injury Status: Resolved Current Visit: Yes (6) Sepsis due to Streptococcus pneumoniae Status: Acute Current Visit: Yes (7) Hyponatremia Status: Resolved Current Visit: Yes (8) Pulmonary nodule Status: Acute Current Visit: Yes Assessment and Plan for All Diagnoses:: I discussed the case and reviewed the films with radiologist. It was felt that there was only a scant trace amount of pleural fluid noted on the CT scan not amenable to "blind" thoracentesis. Plan was for ultrasound with possible radiographically guided focal aspiration of a small amount of fluid for diagnostic purposes. However, ultrasound revealed no evidence of any pleural fluid. She has pending pulmonology consultation.
--- NOTE | 2018-07-06 07:50 | Swing Bed Reports ---
*Admission Date: 07/03/18 *Chief complaint: gram positive sepsis *History of present illness: Patient is a very pleasant 67-year-old white female with history of home oxygen dependent COPD. She does have a previous history of a left lung nodule which reportedly had an attempt at an unsuccessful biopsy at [facility] in April 2017 resulting in hemothorax. She admitted a couple days ago with increasing shortness of air and productive cough. She was diagnosed with pneumonia. Initial chest x-ray revealed evidence of left effusion. She underwent CT scan of the chest yesterday. Surgical consultation was obtained today for possible diagnostic thoracentesis due to history of this lung nodule. Hospital Course Hospital Course: Patient was admitted for acute on chronic hypoxemic respiratory failure. Found to have pneumococcal bacteremia and criteria meeting sepsis. Was initiated on IV antibiotics and supplemental oxygen along with steroids. Pulmonary consult was placed due to patient's severe lung disease and finding of a nodule that is increased in size. Patient has improved clinically with IV antibiotics. At this time has repeat blood cultures pending to assess for clearance. Is improving clinically but not stable enough to discharge home. Plan to transition to swing IV therapy consultation support, and therapy. Exam Vital signs and Labs for Last 24 Hours: Temp Pulse Resp BP Pulse Ox 97.7 F 90 19 152/82 H 95 07/06/18 04:43 07/06/18 05:50 07/06/18 04:43 07/06/18 04:43 07/06/18 05:50 I & O for Last 24 hours: Intake & Output 07/03/18 07/04/18 07/05/18 07/06/18 23:59 23:59 23:59 23:59 Intake Total 290 / 290 2675 / 2675 1444 / 1444 1625 / 1625 Balance 290 / 290 2675 / 2675 1444 / 1444 1625 / 1625 Weight 52.163 kg 52.163 kg 54.885 kg Microbiology Reports for the Last 24 Hours: Microbiology 07/03/18 11:55 Sputum - Expectorated Sputum Gram Stain - Final 07/03/18 11:55 Sputum - Expectorated Sputum Sputum Culture - Final Normal Respiratory Apurva 07/03/18 11:01 Blood Blood Culture - Final Streptococcus pneumoniae 07/03/18 11:01 Blood Blood Culture - Final Streptococcus pneumoniae Narrative: Patient is pleasant and alert, oriented to person place and time. Lung exam with bilateral rhonchi diffusely, crackles in lower lobes, prolonged expiration. Cardiac exam with regular rhythm, no murmurs. Abdomen soft and nontender, bowel sounds active. No perfusion deficit, good capillary refill, extremities warm and dry - *Routine HEENT Exam Head: Present: normocephalic, atraumatic Eye: Present: EOMI, PERRL ENT: Present: mucous membranes moist Comments: bitemporal wasting - *Routine Neck Exam Present: supple, full ROM. Absent: JVD - *Routine Respiratory Exam Present: accessory muscle use, prolonged expiratory phase, rhonchi, wheezes, crackles - *Routine Cardiovascular Exam Present: RRR, Normal S1 - *Routine Abdominal Exam Present: soft, normoactive bowel sounds - *Routine Rectal Exam Patient deferred: visual exam - *Routine Exam Patient deferred: external exam - *Routine Extremities Exam Absent: cyanosis, clubbing, edema - *Routine Skin Exam Present: intact. Absent: cyanosis, erythema - *Routine Neurological Exam Present: alert, oriented X3. Absent: altered mental status DS: Diagnosis - Discharge Diagnosis (1) Pleural effusion Status: Acute (2) COPD (chronic obstructive pulmonary disease) Status: Acute (3) LLL pneumonia Status: Acute (4) Bacteremia Status: Acute (5) Acute kidney injury Status: Resolved (6) Sepsis due to Streptococcus pneumoniae Status: Acute (7) Hyponatremia Status: Resolved (8) Pulmonary nodule Status: Acute Discharge/Transfer (Swing Bed) - Plan of Care Resident has been informed of condition and prognosis?: Yes Mobility Status: ambulatory w/o assistance Goal of treatment:: clear bacteriemia, continued IV Abx for pneumonia Rehab Potential: Innapropriate for Skilled Therapy Prognosis:: fair Mental Status: Average I concur with the most recent H&P: Yes Date of most recent H&P: 07/03/18 Certification: I have reviewed and agree with this resident's plan of care. I certify that post-hospital senior living facility services are required to be given on an inpatient basis because of the need for senior living care on a continuing basis for the condition(s) for which he/she is receiving inpatient hospital services prior to admission to [facility]. I also certify that the resident meets existing SNF level of care definition. - Discharge from Acute Disposition: [facility] Current Home Med List: Home Medications Medication Instructions Recorded Confirmed Type Rosuvastatin Calcium 10 mg PO HS 07/03/18 07/03/18 History Home Med List for Swing Bed: Continue hydrocodone 5 mg-acetaminophen 325 mg tablet 1 tab PO Q6H escitalopram 10 mg tablet 10 mg PO DAILY tab omeprazole 40 mg capsule,delayed release 40 mg PO DAILY cap spironolactone 50 mg tablet 50 mg PO DAILY amlodipine 10 mg tablet 10 mg PO DAILY tab Rosuvastatin Calcium 10 mg PO HS
== END 2018-07-06 08:11 | disposition swing bed (61) | DRG 871 ==
LOC: ER 10:41 → 2ND 13:02
PROVIDERS: ADMIT Internal Medicine Adolescent Medicine; ATTEND Internal Medicine Adolescent Medicine
CPT/HCPCS: 36415; 71020; 71046; 71260; 76604; 80048; 80053; 82550; 82553; 82803; 83605; 83880; 84436; 84443; 84479; 84484; 85007; 85025; 86580; 87040; 87070; 87077; 87186; 87205; 87275; 87276; 93005; 94640; 94761; 96365; 96367; 97162; 97165; 99285; J1956

== ENCOUNTER 2018-07-06 08:12 | Inpatient (IN) ==
--- NOTE | 2018-07-06 09:08 | Pharmacy Consult Notes ---
[facility] Pharmacy VTE Monitoring - Patient Demographics Admission date: 07/06/18 Report Date: 07/06/18 Time: 09:08 Allergies/Adverse Reactions: Patient Allergies Penicillins [PENICILLINS] Allergy (Intermediate, Verified 07/03/18 14:04) I-HIVES lisinopril Allergy (Unknown, Verified 07/03/18 14:04) Height: 1.63 m Weight: 56.699 kg - Prophylaxis VTE Prophylaxis Ordered?: Yes Types of VTE Prophylaxis: TEDS Knee High Location of Applied Device: Bilateral Lower Extremeties - VTE Diagnosis Confirmed Treatment or plan recommended: Continue Current Treatment
--- NOTE | 2018-07-06 11:05 | Consult Report ---
*Admission Date: 07/06/18 *Chief complaint: I have pneumonia. *History of present illness: Mrs. Gomez is a 67-year-old woman who has long-standing chronic obstructive pulmonary disease complicated by chronic, possibly hypercapnic, respiratory failure. She normally has chronic cough which is productive of small amounts of generally clear sputum and she is breathless with activities of daily living. She was in her usual state of health until last Thursday when she dropped severe pleuritic chest pain on the left side radiating to her left shoulder. She thinks she had fever and chills at the time as well and she was evaluated in the office on Thursday and admitted. She was found to have left lower lobe consolidation and blood cultures have grown Streptococcus pneumoniae. She told me that she is improving with antibiotic therapy. She has a persisting cough which is now productive of lightly pink sputum. The chest pain has improved. Parenthetically, she has had the pneumococcal vaccination sometime in the last year or so. She was admitted to the [facility] in April 2017 with acute respiratory failure and pneumonia. Since the prior summer, she had been evaluated for a left upper lobe noncalcified nodular density and transthoracic biopsy was inconclusive. She has not had further follow-up for this. Mrs. Gomez has been losing weight over the last year or 2 but she told me that "I am gaining it back now." She has not had other fevers and has no known exposure to tuberculosis. She has no symptoms of esophageal reflux but does have chronic pain in her joints and back She wears bifocals and upper dentures and has had some easy bruising of the skin;the rest of a 14 point review of systems is currently negative apart from what is mentioned above. At home, she is on Spiriva and as needed albuterol. She smoked about 1 package of cigarettes daily for 40 years, quitting 2 years ago. [facility] History Medical History: Reports:: Chronic Obstructive Pulmonary Disease (COPD), Home Oxygen, Hyperlipidemia, Hypertension Denies:: Cancer, Diabetes Mellitus Type 1, Diabetes Mellitus Type 2, MRSA *Have you ever received a pneumonia vaccine?: Yes *Have you received a flu vaccine this season?: Yes Other Medical History: Reports: Anemia, Arthritis, Hormone Therapy (estrogen), Sinus Problems Laterality Cases: Left: Arthroscopy Hip Other Surgeries: Yes: Cardiac Catheterization, Colonoscopy, EGD, Hysterectomy- Partial, Tubal Ligation Amputation: No Fractures: Yes (right wrist) - *Social History Smoking Status: Former smoker Tobacco Type: cigarettes # Packs/Day (cigarettes): 1 Alcohol Intake: never *Occupational Status:: unemployed Housing: house Household Members: children, other Comment: She is but her suffers from PTSD and lives close by. He keeps to himself but they do keep in touch. She is with 1 of her gran ddaughters. - Psychiatric History Expresses thoughts of harming self/others: None Suicide Plan Description: No Plan Family Hx:: Cancer, Hyperlipidemia, Hypertension Review of Systems - Review of Systems Review of systems:: pertinent systems reviewed and negative unless documented below Meds Home Medications Medication Instructions Recorded Confirmed Type amlodipine 10 mg tablet 10 mg PO DAILY tab 08/21/17 07/06/18 History escitalopram 10 mg tablet 10 mg PO DAILY tab 08/21/17 07/06/18 History hydrocodone 5 mg-acetaminophen 325 1 tab PO Q6H 08/21/17 07/06/18 History mg tablet omeprazole 40 mg capsule,delayed 40 mg PO DAILY cap 08/21/17 07/06/18 History release spironolactone 50 mg tablet 50 mg PO DAILY 08/21/17 07/06/18 History Rosuvastatin Calcium 10 mg PO HS 07/03/18 07/06/18 History Allergies Allergy/AdvReac Type Severity Reaction Status Date / Time Penicillins [PENICILLINS] Allergy Intermediate I-HIVES Verified 07/03/18 14:04 lisinopril Allergy Unknown Verified 07/03/18 14:04 Exam Vital signs and Labs for Last 24 Hours: Temp Pulse Resp BP Pulse Ox 97.4 F L 107 H 20 103/61 L 92 L 07/06/18 08:15 07/06/18 08:15 07/06/18 08:15 07/06/18 08:15 07/06/18 10:00 I & O for Last 24 hours: Intake & Output 07/03/18 07/04/18 07/05/18 07/06/18 23:59 23:59 23:59 23:59 Intake Total 360 / 360 Balance 360 / 360 Weight 56.699 kg Narrative: Mrs. Gomez is a thin, chronically ill-appearing woman who is lying in bed at a 60 degree angle wearing oxygen. She is breathless but articulate and able to give me a fairly good history. HEENT: Sclerae clear; conjunctivae pale; external nares unremarkable; oropharynx shows no obvious mucosal lesions. She is wearing upper dentures and the oropharynx is Mallampati IV. Mucosa is a little dry. Neck: No JVD; no carotid bruits. Chest: Symmetrical expansion; hyperresonance by percussion bilaterally except at the left base posteriorly where there is dullness. There are also bronchial breath sounds and inspiratory crackles at the left base. There is egophony there. I do hear a pleural friction rub. Heart: Regular rhythm; no obvious murmur. Abdomen: Bowel sounds diminished; scaphoid; soft, nontender, no masses or organomegaly. Skin: No rash but there are ecchymoses over the forearms. Extremities: No clubbing or edema. Internal Medicine - CN: Reslt - Impressions Chest CT shows the upper lobe nodule which does appear somewhat larger than it did in 2017. It appears somewhat spiculated to me and is not calcified. There is a dense left lower lobe consolidation without obvious endobronchial obstruction. I think there is a small left pleural effusion. Assessment and Plan - Assessment and plan all Dx Assessment and Plan for all problems:: Mrs. Gomez has been admitted with bacteremic pneumococcal pneumonia and seems to be responding clinically to antibiotic therapy. She is allergic to penicillin (hives) but I am surprised the lab does not test for penicillin sensitivity of the organism. In any case, either levofloxacin or clindamycin would be adequate for her and she does not need both. I do not think she is suffering an acute exacerbation of COPD and so would not give her corticosteroid which might interfere with treatment of sepsis. Once she has recovered, I will order a PET/CT to further investigate the nodule. She does have emphysema on the CT scan of the chest and biopsy will be a little risky. After the PET/CT, I may ask our interventional applications sales representative to consider navigational bronchoscopy to biopsy the nodule. She is anemic and has stomatocytosis and rouleaux on her peripheral smear. She has had 2 episodes of pneumonia, this last one confirmed bacteremic pneumococcal, and I would like to exclude an underlying myeloproliferative disease predisposing her to pneumonias. I think it would be prudent to order a serum protein electrophoresis and to look for light chains in her urine. Thank you for the opportunity to participate in Mrs. Gomez's care.
--- NOTE | 2018-07-08 10:07 | Progress Note ---
Internal Medicine - PN: Subj *Date: 07/08/18 *Time: 08:20 Interval history: Patient sitting up in chair, states she feels "weak." Shortness of breath is improving. States therapy is going well. Alert and oriented x3. Rate and rhythm regular. Rhonchi throughout lung benavides. Abdomen soft and nontender. No LE edema Exam Vital signs and Labs for Last 24 Hours: Temp Pulse Resp BP Pulse Ox 98.4 F 105 H 19 142/73 H 96 07/08/18 07:52 07/08/18 07:52 07/08/18 07:52 07/08/18 07:52 07/08/18 07:52 I & O for Last 24 hours: Intake & Output 07/05/18 07/06/18 07/07/18 07/08/18 11:59 11:59 11:59 11:59 Intake Total 360 / 360 2433 / 2433 1080 / 1080 Output Total 1500 / 1500 950 / 950 Balance 360 / 360 933 / 933 130 / 130 Weight 125 lb Assessment and Plan (1) COPD (chronic obstructive pulmonary disease) Current visit: No Status: Acute Category: Medical Code(s): J44.9 - Chronic obstructive pulmonary disease, unspecified (2) LLL pneumonia Current visit: No Status: Acute Category: Medical Code(s): J18.1 - Lobar pneumonia, unspecified organism (3) Pleural effusion Current visit: No Status: Acute Category: Medical Code(s): J90 - Pleural effusion, not elsewhere classified - Assessment and plan all Dx Assessment and Plan for all problems:: Pulmonology note reviewed and appreciated. Solu-medrol discontinued. Will evaluate blood cultures and consider de-escalating to one antibiotic later today with discharge home tomorrow.
--- NOTE | 2018-07-09 07:57 | Discharge Summary ---
General - General Admission date:: 07/06/18 Discharge date: 07/09/18 Objective Vital signs: Temp Pulse Resp BP Pulse Ox 98.0 F 106 H 18 123/83 95 07/08/18 20:00 07/09/18 07:04 07/08/18 20:00 07/08/18 20:00 07/09/18 07:04 Results Labs on day of discharge: Preliminary micro results at discharge 07/06/18 13:45 Blood Culture - Preliminary Blood NO GROWTH AFTER 48 HOURS 07/06/18 14:00 Blood Culture - Preliminary Blood NO GROWTH AFTER 48 HOURS DS: Diagnosis - Discharge Diagnosis (1) COPD (chronic obstructive pulmonary disease) Status: Acute (2) LLL pneumonia Status: Acute (3) Pleural effusion Status: Acute Discharge Plan - Patient Discharge Instructions ACTIVITY: Continue current activity DIET: continue same diet Patient Instructions: DI for Pneumonia -- Adult - Follow up Plan Follow up with: Richard Gallardo [Primary Care Provider] - Disposition: Home, Self-Senior Living Medications: Home Medications Medication Instructions Recorded Confirmed Type amlodipine 10 mg tablet 10 mg PO DAILY tab 08/21/17 07/06/18 History escitalopram 10 mg tablet 10 mg PO DAILY tab 08/21/17 07/06/18 History hydrocodone 5 mg-acetaminophen 325 1 tab PO Q6H 08/21/17 07/06/18 History mg tablet omeprazole 40 mg capsule,delayed 40 mg PO DAILY cap 08/21/17 07/06/18 History release spironolactone 50 mg tablet 50 mg PO DAILY 08/21/17 07/06/18 History Rosuvastatin Calcium 10 mg PO HS 07/03/18 07/06/18 History levoFLOXacin [Levaquin 750mg 750 mg PO Q48H 7 Days #3 tab 07/09/18 Rx tablet] Prescriptions/Medication Reconciliation: New levoFLOXacin [Levaquin 750mg tablet] 750 mg PO Q48H 7 Days #3 tab Continue hydrocodone 5 mg-acetaminophen 325 mg tablet 1 tab PO Q6H escitalopram 10 mg tablet 10 mg PO DAILY tab omeprazole 40 mg capsule,delayed release 40 mg PO DAILY cap spironolactone 50 mg tablet 50 mg PO DAILY amlodipine 10 mg tablet 10 mg PO DAILY tab Rosuvastatin Calcium 10 mg PO HS
--- NOTE | 2018-07-09 18:05 | Discharge Summary ---
General - General Admission date:: 07/06/18 Discharge date: 07/09/18 HPI HPI: Patient is a very pleasant 67-year-old white female with history of home oxygen dependent COPD. She does have a previous history of a left lung nodule which reportedly had an attempt at an unsuccessful biopsy at [facility] in April 2017 resulting in hemothorax. She admitted a couple days ago with increasing shortness of air and productive cough. She was diagnosed with pneumonia. Initial chest x-ray revealed evidence of left effusion. She underwent CT scan of the chest yesterday. Surgical consultation was obtained today for possible diagnostic thoracentesis due to history of this lung nodule. Hospital Course Hospital Course: Patient was admitted for acute on chronic hypoxemic respiratory failure. Found to have pneumococcal bacteremia and criteria meeting sepsis. Was initiated on IV antibiotics and supplemental oxygen along with steroids. Pulmonary consult was placed due to patient's severe lung disease and finding of a nodule that is increased in size. Patient has improved clinically with IV antibiotics. Patient was transitioned to swing status for continuation of IV therapy. Pulmonology saw patient while in swing and recommended discontinuation of steroids and clindamycin. Recommended continued treatment for pneumonia with levofloxacin. Due to renal insufficiency continued to require every 48hr dosing. Patient continued to clinically improve. No further fevers or respiratory distress. Ambulating independently. Tolerating baseline home oxygen requirement. Discharged home to complete 3 more doses (7 more days) of oral antibiotics for total of 14 days of antibiotics after clearance of blood cultures. Repeat blood cultures showed clearance of bacteremia leading to helena ent being deemed clinically stable for discharge home. Instructed to follow-up with Dr. Gallardo within a week of discharge. Complete antibiotics and initiate stiolto Respimat daily for her COPD Objective Vital signs: Temp Pulse Resp BP Pulse Ox 97.8 F 99 H 93 H 136/75 93 L 07/09/18 08:00 07/09/18 08:00 07/09/18 11:00 07/09/18 08:00 07/09/18 08:00 Narrative: - *Routine HEENT Exam Head: Present: normocephalic, atraumatic Eye: Present: EOMI, PERRL ENT: Present: mucous membranes moist Comments: bitemporal wasting - *Routine Neck Exam Present: supple, full ROM. Absent: JVD - *Routine Respiratory Exam Present: no accessory muscle use, prolonged expiratory phase, rhonchi, wheezes, no crackles - *Routine Cardiovascular Exam Present: RRR, Normal S1 - *Routine Abdominal Exam Present: soft, normoactive bowel sounds - *Routine Rectal Exam Patient deferred: visual exam - *Routine Exam Patient deferred: external exam - *Routine Extremities Exam Absent: cyanosis, clubbing, edema - *Routine Skin Exam Present: intact. Absent: cyanosis, erythema - *Routine Neurological Exam Present: alert, oriented X3. Absent: altered mental status Results Labs on day of discharge: Labs from last 24 hours 07/06/18 07/06/18 16:45 13:45 Total Protein (PEP) 7.0 Albumin (PEP) 2.3 L Globulin (PEP) 4.7 H Albumin/Globulin Ratio 0.5 L Eggjz-0-Jpkoqxegf 0.5 H Unkji-0-Qazjnivbc 1.4 H Beta Globulins 0.8 Gamma Globulins 2.0 H M-Zoltan 1.8 H PEP Note Comment U Free [place] Light Ch 517.00 H U Free Lambda Light Ch 10.30 H Free [place]/Lambda Ratio 50.19 H Preliminary micro results at discharge 07/06/18 13:45 Blood Culture - Preliminary Blood NO GROWTH AFTER 48 HOURS 07/06/18 14:00 Blood Culture - Preliminary Blood NO GROWTH AFTER 48 HOURS DS: Diagnosis - Discharge Diagnosis (1) COPD (chronic obstructive pulmonary disease) Status: Chronic (2) LLL pneumonia Status: Resolved (3) Pleural effusion Status: Chronic Discharge Plan - Patient Discharge Instructions ACTIVITY: Continue current activity DIET: continue same diet Patient Instructions: DI for Pneumonia -- Adult - Follow up Plan Follow up with: Richard Gallardo [Primary Care Provider] - Disposition: Home, Self-Assisted Medications: Home Medications Medication Instructions Recorded Confirmed Type amlodipine 10 mg tablet 10 mg PO DAILY tab 08/21/17 07/06/18 History escitalopram 10 mg tablet 10 mg PO DAILY tab 08/21/17 07/06/18 History hydrocodone 5 mg-acetaminophen 325 1 tab PO Q6H 08/21/17 07/06/18 History mg tablet omeprazole 40 mg capsule,delayed 40 mg PO DAILY cap 08/21/17 07/06/18 History release spironolactone 50 mg tablet 50 mg PO DAILY 08/21/17 07/06/18 History Rosuvastatin Calcium 10 mg PO HS 07/03/18 07/06/18 History Tiotropium Br/Olodaterol HCl 4 gm IH DAILY 30 Days #1 mist.inhal 07/09/18 Rx [Stiolto Respimat Inhal [place]] levoFLOXacin [Levaquin 750mg 750 mg PO Q48H 7 Days #3 tab 07/09/18 Rx tablet] Prescriptions/Medication Reconciliation: New levoFLOXacin [Levaquin 750mg tablet] 750 mg PO Q48H 7 Days #3 tab Tiotropium Br/Olodaterol HCl [Stiolto Respimat Inhal [place]] 4 gm IH DAILY 30 Days #1 mist.inhal Continue hydrocodone 5 mg-acetaminophen 325 mg tablet 1 tab PO Q6H escitalopram 10 mg tablet 10 mg PO DAILY tab omeprazole 40 mg capsule,delayed release 40 mg PO DAILY cap spironolactone 50 mg tablet 50 mg PO DAILY amlodipine 10 mg tablet 10 mg PO DAILY tab Rosuvastatin Calcium 10 mg PO HS
== END 2018-07-09 18:00 | disposition home or self-care (01) | DRG 871 ==
LOC: 2ND 08:12
PROVIDERS: ADMIT Internal Medicine Adolescent Medicine; ATTEND Internal Medicine Adolescent Medicine
CPT/HCPCS: 36415; 83883; 84155; 84165; 87040; 94640; 94761; J1956

== ENCOUNTER → 2019-01-17 10:14 | Outpatient (CLI) | payer MEDICARE, SELFPAY ==
--- NOTE | 2019-01-17 10:25 | CT_ITS ---
PROCEDURE: CT CHEST W CON CLINICAL HISTORY: LUNG CA Follow-up lung cancer COMPARISON: [facility]WO CT CHEST W/WO CONTRAST from 10/30/[address] chest w con from 07/04/2018 TECHNIQUE: 75 mL Optiray 350 the the foot Axial images obtained with sagittal and coronal reformats. All CT scans at the facility use one or more dose reduction, viz: automated exposure control, ma/kV adjustment per patient size (including targeted exams where dose is matched to indication, i.e. head), or iterative reconstruction technique. FINDINGS: Diffuse centrilobular emphysema with fibrotic changes and COPD. Lobulated left upper lobe mass is once again noted measuring 17 x 14 mm previously 14 x 13 mm. The mass has a lobular contour and is suspicious for neoplasm. No mediastinal or hilar mass or adenopathy. There are coronary artery calcifications with normal heart size. Previously noted consolidation in the left lower lobe has resolved. Left-sided pleural effusion has resolved. There is diffuse osteopenia of the thoracic spine. Wedge compression involves the T6 vertebral body which is unchanged. Upper abdominal images are unremarkable IMPRESSION: Slight increase in size of the lobular low noncalcified left upper lobe nodule suspicious for neoplasm Resolved left lower lobe pneumonia and resolved left-sided pleural effusion with diffuse centrilobular emphysema/COPD and pulmonary fibrotic change Dictated by: Chet Tomlin MD 01/19/2019 10:01 Electronically signed by Chet Tomlin MD in [place] 01/19/2019 10:01
--- NOTE | 2019-01-17 10:25 | CT_ITS ---
PROCEDURE: CT ABDOMEN PELVIS W CON CLINICAL HISTORY: LUNG CA Left lung mass COMPARISON: No exams were available for comparison TECHNIQUE: 75 mL Optiray 350 performed in conjunction with the chest CT Axial images obtained with sagittal and coronal reformats. All CT scans at the facility use one or more dose reduction, viz: automated exposure control, ma/kV adjustment per patient size (including targeted exams where dose is matched to indication, i.e. head), or iterative reconstruction technique. FINDINGS: Please see chest CT report for description of the lung bases. There is a linear area of decreased attenuation within the right hepatic lobe centrally and could be due to an area of scarring not typical appearance for metastatic lesion. There is a subtle isodense in the left hepatic lobe anteriorly at 4 mm nonspecific too small to categorize. The spleen, adrenal glands, and pancreas have an unremarkable appearance. No acute finding of the kidneys. No intestinal obstruction or free air. No evidence of appendicitis or diverticulitis. There is diverticulosis of the descending and sigmoid colon with a moderate amount of retained colonic feces. Artifact is present from a left hip prosthesis. There is diffuse osteopenia of the skeletal structures. There is mild wedging of L1 and T12, L2 and moderate wedging of L4 with 5 mm anterolisthesis of L4 on L5 artifact is present from a left hip prosthesis. IMPRESSION: 1. Nonspecific nonacute findings of the abdomen and pelvis as described above with no convincing evidence of metastatic disease 2. Multiple wedge compression changes within the lower thoracic and lumbar spine with diffuse osteopenia. These are age indeterminate. MRI may better clarify the age of these fractures if clinically desired Dictated by: Chet Tomlin MD 01/19/2019 10:49 Electronically signed by Chet Tomlin MD in [place] 01/19/2019 10:49
[2019-01-17 10:33] LABS: Blood Urea Nitrogen 23 mg/dL (7-18); Creatinine,Serum 0.79 mg/dL (0.55-1.02); Estimated Glomerular Filt Rate 72 ml/min (>60); GFR (African American) 87 ML/MIN (>60)
== END ==
PROVIDERS: PCP Internal Medicine; Visit Provider Internal Medicine Medical Oncology
DX: Z03.89 Encounter for observation for other suspected diseases and conditions ruled out; C34.92 Malignant neoplasm of unspecified part of left bronchus or lung
CPT/HCPCS: 36415; 71260; 74177; 82565; 84520; Q9967

== ENCOUNTER → 2019-02-26 10:55 | Outpatient (CLI) | payer MEDICARE, SELFPAY ==
[2019-02-26 11:31] LABS: Basophils % 0.4 % (0.1-2.0); Eosinophils # 0.2 K/mm3 (0.0-0.4); Eosinophils % 3.8 % (0.1-12.0); Hemoglobin 8.7 g/dL (12.2-16.2); Lymphocytes # 0.9 K/mm3 (0.7-4.5); Lymphocytes % 22.9 % (10-50); Mean Corpuscular HGB Conc 30.9 g/dL (31.8-35.4); Mean Corpuscular Hemoglobin 29.5 pg (27.0-31.2); Mean Corpuscular Volume 95.6 fl (81-99); Mean Platelet Volume 7.9 fl (7.4-10.4); Monocytes # 0.3 K/mm3 (0.1-1.0); Neutrophils # 2.6 K/mm3 (1.8-7.8); Neutrophils % 65.8 % (37.0-80.0); Platelet Count 279 K/mm3 (142-424); Red Blood Count 2.93 M/mm3 (4.20-5.40); Red Cell Distribution Width 14.4 % (11.5-17.5)
[2019-02-26 12:45] LABS: Alanine Aminotransferase 7 U/L (12-78); Albumin Level 3.1 gm/dL (3.4-5.0); Albumin/Globulin Ratio 0.5 (1.1-1.8); Alkaline Phosphatase 80 U/L (46-116); Anion Gap 4.6 mEq/L (5-15); Aspartate Amino Transferase 7 U/L (15-37); Bilirubin,Total 0.2 mg/dL (0.2-1.0); Blood Urea Nitrogen 12 mg/dL (7-18); Calcium 8.8 mg/dL (8.5-10.1); Carbon Dioxide 38 mmol/L (21.0-32.0); Chloride 94 mmol/L (98-107); Creatinine,Serum 0.64 mg/dL (0.55-1.02); Estimated Glomerular Filt Rate 92 ml/min (>60); GFR (African American) 111 ML/MIN (>60); Globulin 6.7 gm/dl (1.3-3.2); Glucose 79 mg/dL (74-106); Potassium 4.6 mmoL/L (3.5-5.1); Sodium 132 mmol/L (136-145); Total Protein,Serum 9.8 gm/dL (6.4-8.2)
[2019-02-28 13:23] LABS: Free Kappa Lt Chains 334.3 mg/L (3.3-19.4); Free Lambda Lt Chains 6.9 mg/L (5.7-26.3)
[2019-02-28 15:09] LABS: Albumin 3.9 g/dL (2.9-4.4); Alpha-1-Globulin 0.3 g/dL (0.0-0.4); Alpha-2-Globulin 0.9 g/dL (0.4-1.0); Gamma Globulin 3.7 g/dL (0.4-1.8); Protein, Total 9.6 g/dL (6.0-8.5)
[2019-03-01 15:06] LABS: Immunoglobulin A, Qn 40 mg/dL (87-352); Immunoglobulin G, Qn 5581 mg/dL (700-1600); Immunoglobulin M, Qn 22 mg/dL (26-217)
== END ==
PROVIDERS: Visit Provider Internal Medicine Medical Oncology
DX: C34.92 Malignant neoplasm of unspecified part of left bronchus or lung (principal)
CPT/HCPCS: 36415; 80053; 82784; 83883; 84155; 84165; 85025; 86334

== ENCOUNTER → 2019-04-22 10:29 | Outpatient (CLI) | payer MEDICARE, SELFPAY ==
[2019-04-22 10:52] LABS: Basophils % 0.2 % (0.1-2.0); Eosinophils # 0.2 K/mm3 (0.0-0.4); Eosinophils % 3.4 % (0.1-12.0); Hematocrit 30.3 % (37.0-47.0); Hemoglobin 9.5 g/dL (12.2-16.2); Lymphocytes # 0.8 K/mm3 (0.7-4.5); Lymphocytes % 11.4 % (10-50); Mean Corpuscular HGB Conc 31.2 g/dL (31.8-35.4); Mean Corpuscular Hemoglobin 29.9 pg (27.0-31.2); Mean Platelet Volume 7.5 fl (7.4-10.4); Monocytes # 0.5 K/mm3 (0.1-1.0); Monocytes % 7.1 % (1.7-9.3); Neutrophils # 5.1 K/mm3 (1.8-7.8); Neutrophils % 77.9 % (37.0-80.0); Platelet Count 219 K/mm3 (142-424); Red Blood Count 3.16 M/mm3 (4.20-5.40); Red Cell Distribution Width 14.3 % (11.5-17.5); White Blood Count 6.6 K/mm3 (4.8-10.8)
[2019-04-22 13:46] LABS: Alanine Aminotransferase 14 U/L (12-78); Albumin Level 2.9 gm/dL (3.4-5.0); Albumin/Globulin Ratio 0.5 (1.1-1.8); Alkaline Phosphatase 68 U/L (46-116); Anion Gap 6.8 mEq/L (5-15); Aspartate Amino Transferase 5 U/L (15-37); Bilirubin,Total 0.4 mg/dL (0.2-1.0); Blood Urea Nitrogen 18 mg/dL (7-18); Calcium 8.8 mg/dL (8.5-10.1); Carbon Dioxide 38 mmol/L (21.0-32.0); Chloride 97 mmol/L (98-107); Creatinine,Serum 0.64 mg/dL (0.55-1.02); Estimated Glomerular Filt Rate 92 ml/min (>60); GFR (African American) 111 ML/MIN (>60); Glucose 100 mg/dL (74-106); Potassium 3.8 mmoL/L (3.5-5.1); Sodium 138 mmol/L (136-145); Total Protein,Serum 8.9 gm/dL (6.4-8.2)
== END ==
PROVIDERS: Visit Provider Internal Medicine Medical Oncology
DX: C90.00 Multiple myeloma not having achieved remission (principal)
CPT/HCPCS: 36415; 80053; 85025

== ENCOUNTER → 2019-05-26 14:25 | Outpatient (CLI) | payer MEDICARE, MEDICAID, SELFPAY ==
[2019-05-26 14:46] LABS: Basophils % 0.2 % (0.1-2.0); Eosinophils # 0.2 K/mm3 (0.0-0.4); Eosinophils % 3.4 % (0.1-12.0); Hemoglobin 9.1 g/dL (12.2-16.2); Lymphocytes # 0.8 K/mm3 (0.7-4.5); Lymphocytes % 12.4 % (10-50); Mean Corpuscular HGB Conc 31.3 g/dL (31.8-35.4); Mean Corpuscular Hemoglobin 29.8 pg (27.0-31.2); Mean Corpuscular Volume 95.2 fl (81-99); Mean Platelet Volume 8.1 fl (7.4-10.4); Monocytes # 0.3 K/mm3 (0.1-1.0); Monocytes % 5.5 % (1.7-9.3); Neutrophils # 4.7 K/mm3 (1.8-7.8); Neutrophils % 78.5 % (37.0-80.0); Platelet Count 405 K/mm3 (142-424); Red Blood Count 3.04 M/mm3 (4.20-5.40); Red Cell Distribution Width 14.1 % (11.5-17.5)
[2019-05-26 15:03] LABS: Hematocrit 29.2 % (37.0-47.0)
[2019-05-26 17:49] LABS: Alanine Aminotransferase 11 U/L (12-78); Albumin Level 2.5 gm/dL (3.4-5.0); Albumin/Globulin Ratio 0.5 (1.1-1.8); Alkaline Phosphatase 84 U/L (46-116); Anion Gap 9.8 mEq/L (5-15); Aspartate Amino Transferase 6 U/L (15-37); Bilirubin,Total 0.2 mg/dL (0.2-1.0); Blood Urea Nitrogen 20 mg/dL (7-18); Calcium 8.7 mg/dL (8.5-10.1); Carbon Dioxide 35 mmol/L (21.0-32.0); Chloride 97 mmol/L (98-107); Creatinine,Serum 0.67 mg/dL (0.55-1.02); Estimated Glomerular Filt Rate 87 ml/min (>60); GFR (African American) 105 ML/MIN (>60); Globulin 4.6 gm/dl (1.3-3.2); Glucose 107 mg/dL (74-106); Potassium 3.8 mmoL/L (3.5-5.1); Sodium 138 mmol/L (136-145); Total Protein,Serum 7.1 gm/dL (6.4-8.2)
[2019-05-30 15:10] LABS: Albumin 2.7 g/dL (2.9-4.4); Alpha-1-Globulin 0.4 g/dL (0.0-0.4); Alpha-2-Globulin 1.3 g/dL (0.4-1.0); Gamma Globulin 1.9 g/dL (0.4-1.8); Protein, Total 7.2 g/dL (6.0-8.5)
[2019-05-30 17:42] LABS: Free Kappa Lt Chains 132.4 mg/L (3.3-19.4); Immunoglobulin A, Qn 60 mg/dL (87-352); Immunoglobulin G, Qn 2267 mg/dL (700-1600); Immunoglobulin M, Qn 31 mg/dL (26-217)
== END ==
PROVIDERS: Visit Provider Internal Medicine Medical Oncology
DX: C90.00 Multiple myeloma not having achieved remission (principal)
CPT/HCPCS: 36415; 80053; 82784; 83883; 84155; 84165; 85025; 86334